=== PATIENT | male | born 1980 | race American Indian/Alaskan Native ===

== ENCOUNTER 2018-08-17 16:38 | Emergency (ER) | payer MEDICAID ==
[2018-08-17 19:17] VITALS: BP 134/88
[2018-08-17] MEDS ORDERED: MOTRIN PO ONE (19:41)
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
== END 2018-08-17 20:36 | disposition home or self-care (01) ==
LOC: ED 16:38
DX: T22.112A Burn of first degree of left forearm, initial encounter (principal); M54.5 Low back pain; R07.89 Other chest pain; V49.49XA Driver injured in collision with other motor vehicles in traffic accident, initial encounter; Y93.89 Activity, other specified; Y92.89 Other specified places as the place of occurrence of the external cause; Y99.8 Other external cause status
CPT/HCPCS: 93005; 93010; 99282

== ENCOUNTER 2019-11-29 15:12 | Emergency (ER) | payer MEDICAID ==
[2019-11-29 15:28] VITALS: BP 167/85
--- NOTE | 2019-11-29 16:09 | Event Note ---
ED Screening Note Date of service: 11/29/19 Time: 16:05 ED Screening Note: 39 having blood in stool times 2 weeks. Chronic back pain is followed by a provider. No rectal pain. No history hemmohoids. This initial assessment/diagnostic orders/clinical plan/treatment(s) is/are subject to change based on patients health status, clinical progression and re- assessment by fellow clinical providers in the ED. Further treatment and workup at subsequent clinical providers discretion. Patient/guardian urged not to elope from the ED as their condition may be serious if not clinically assessed and managed. Initial orders include:
== END 2019-11-29 19:30 | disposition left against medical advice (07) ==
LOC: ED 15:12
DX: K92.1 Melena (principal); Z53.21 Procedure and treatment not carried out due to patient leaving prior to being seen by health care provider

== ENCOUNTER 2020-08-29 11:14 | Emergency (ER) | payer MEDICAID ==
--- NOTE | 2020-08-29 11:18 | Emergency Department Report ---
Blank Doc - Documentation Documentation: 40-year-old male that presents with generalized diffuse weakness. This initial assessment/diagnostic orders/clinical plan/treatment(s) is/are subject to change based on patient's health status, clinical progression and re- assessment by fellow clinical providers in the ED. Further treatment and workup at subsequent clinical providers discretion. Patient/guardians urged not to elope from the ED as their condition may be serious if not clinically assessed and managed. Initial orders include: 1- Patient sent to MAIN ED for further evaluation and treatment 2- labs
[2020-08-29 11:22] VITALS: BP 123/93
[2020-08-29 11:54] LABS: Basophils % (Auto) 0.9 % (0.0-1.8); Eosinophils % (Auto) 1.5 % (0.0-4.3); Hematocrit 38.5 % (35.5-45.6); Hemoglobin 12.9 gm/dl (11.8-15.2); Lymphocytes # (Auto) 1.1 K/mm3 (1.2-5.4); Lymphocytes % (Auto) 38.8 % (13.4-35.0); Mean Corpuscular HGB Conc 34 % (32-34); Mean Corpuscular Volume 81 fl (84-94); Monocytes # (Auto) 0.2 K/mm3 (0.0-0.8); Monocytes % (Auto) 8.7 % (0.0-7.3); Platelet Count 195 K/mm3 (140-440); Red Blood Count 4.75 M/mm3 (3.65-5.03); Red Cell Distribution Width 14.6 % (13.2-15.2)
[2020-08-29 12:17] LABS: Alanine Aminotransferase 76 units/L (7-56); Albumin 4.4 g/dL (3.9-5); BUN/Creatinine Ratio 7; Blood Urea Nitrogen 9 mg/dL (9-20); Calcium 9.5 mg/dL (8.4-10.2); Hemolysis Index 4
--- NOTE | 2020-08-29 12:42 | Emergency Department Report ---
ED General Adult HPI - General Chief complaint: Medical Clearance Stated complaint: MUSCLE WEAK Time Seen by Provider: 08/29/20 11:15 Source: patient Mode of arrival: Ambulatory Limitations: No Limitations - History of Present Illness Initial comments: The patient was evaluated in the emergency department for symptoms described in the history of present illness. He/she was evaluated in the context of the global COVID-19 pandemic, which necessitated consideration that the patient might be at risk for infection with the virus that causes COVID-19. In stitutional protocols and algorithms that pertain to the evaluation of patients at risk for COVID-19 are in a state of rapid change based on information released by regulatory bodies including the CDC and federal and state organizations. These policies and algorithms were followed during the patient's care in the emergency department. Please note that these policies, procedures and recommendations changed on a rapid basis. 40-year-old -[place] male presents to the emergency room reporting that he has muscle weakness times several weeks. Patient states that he was taking testosterone injections but had stopped. He reports that he is having muscle aches mainly in his thighs and upper arm. He was recently seen an eye doctor on the fifth of this month was given a prescription for Cipro. Patient denies any chest pain shortness of breathing nausea vomiting abdominal pain or urinary frequency urgency. Onset/Timin -: week(s) Severity scale (0 -10): 4 Improves with: none Worsens with: other (Stop taking testosterone) Treatments Prior to Arrival: none - Related Data Previous Rx's Medication Instructions Recorded Last Taken Type Pantoprazole [Protonix] 40 mg PO QDAY #30 tablet 08/18/14 Unknown Rx Ibuprofen [Motrin 600 MG tab] 600 mg PO Q8H #30 tablet 08/17/18 Unknown Rx Naproxen [Naprosyn] 500 mg PO BID #14 tablet 10/19/18 Unknown Rx Allergies Allergy/AdvReac Type Severity Reaction Status Date / Time No Known Allergies Allergy Verified 11/07/14 15:17 ED Review of Systems ROS: Stated complaint: MUSCLE WEAK Other details as noted in HPI Comment: All other systems reviewed and negative ED Past Medical Hx - Past Medical History Previous Medical History?: Yes Additional medical history: "pinched nerve and herniated disc" - Surgical History Past Surgical History?: No - Social History Smoking Status: Never Smoker Substance Use Type: None - Medications Home Medications: Home Medications Medication Instructions Recorded Confirmed Last Taken Type Pantoprazole [Protonix] 40 mg PO QDAY #30 tablet 08/18/14 Unknown Rx Ibuprofen [Motrin 600 MG tab] 600 mg PO Q8H #30 tablet 08/17/18 Unknown Rx Naproxen [Naprosyn] 500 mg PO BID #14 tablet 10/19/18 Unknown Rx ED Physical Exam - General Limitations: No Limitations General appearance: alert - Head Head exam: Present: atraumatic, normocephalic - Eye Eye exam: Present: normal appearance - ENT ENT exam: Present: mucous membranes moist - Neck Neck exam: Present: full ROM - Respiratory Respiratory exam: Present: normal lung sounds bilaterally. Absent: respiratory distress - Cardiovascular Cardiovascular Exam: Present: regular rate, normal rhythm. Absent: systolic murmur, diastolic murmur, rubs, gallop - GI/Abdominal GI/Abdominal exam: Present: soft. Absent: distended, tenderness - Extremities Exam Extremities exam: Present: normal inspection - Back Exam Back exam: Present: normal inspection - Neurological Exam Neurological exam: Present: alert, oriented X3, normal gait - Psychiatric Psychiatric exam: Present: normal affect, normal mood - Skin Skin exam: Present: warm, dry, intact, normal color. Absent: rash ED Course Vital Signs 08/29/20 11:18 Temperature 98.6 F Pulse Rate 80 Respiratory 20 Rate Blood Pressure 123/93 O2 Sat by Pulse 98 Oximetry ED Medical Decision Making - Lab Data Result diagrams: 08/29/20 11:44 08/29/20 11:44 Laboratory Tests 08/29/20 08/29/20 11:44 11:44 WBC 2.9 L RBC 4.75 Hgb 12.9 Hct 38.5 MCV 81 L MCH 27 L MCHC 34 RDW 14.6 Plt Count 195 Lymph % (Auto) 38.8 H [place] % (Auto) 8.7 H Eos % (Auto) 1.5 Baso % (Auto) 0.9 Lymph # (Auto) 1.1 L [place] # (Auto) 0.2 Eos # (Auto) 0.0 Baso # (Auto) 0.0 Seg Neutrophils % 50.1 Seg Neutrophils # 1.4 L Sodium 140 Potassium 4.0 Chloride 104.5 Carbon Dioxide 23 Anion Gap 17 BUN 9 Creatinine 1.3 Estimated GFR > 60 BUN/Creatinine Ratio 7 Glucose 94 Calcium 9.5 Total Bilirubin 0.30 AST 37 ALT 76 H Alkaline Phosphatase 55 Total Creatine Kinase 552 H Total Protein 7.2 Albumin 4.4 Albumin/Globulin Ratio 1.6 - Medical Decision Making 40-year-old -[place] male presents to the emergency room reporting that he has muscle weakness times several weeks. Patient states that he was taking testosterone injections but had stopped. He reports that he is having muscle aches mainly in his thighs and upper arm. He was recently seen an eye doctor on the fifth of this month was given a prescription for Cipro. Patient denies any chest pain shortness of breathing nausea vomiting abdominal pain or urinary frequency urgency. Patient CBC is within normal limits. Patient does have a mild elevation of this creatinine kinase with no change of his serum creatinine will encouraged to increase fluid intake avoid strenuous activity avoid NSAIDs and to follow-up with a primary care provider in the next 3 to 5 days. Critical care attestation.: If time is entered above; I have spent that time in minutes in the direct care of this critically ill patient, excluding procedure time. ED Disposition Clinical Impression: Generalized weakness, Elevated creatine kinase Disposition: [id number] TO HOME OR SELFCARE Is pt being admited?: No Does the pt Need Aspirin: No Condition: Stable Instructions: Weakness (ED) Additional Instructions: Recommend to increase your water intake avoid ibuprofen naproxen or any other NSAIDs. Do not drink or smoke. Is very important for you to follow-up with your primary care provider next 3 to 5 days. Referrals: PRIMARY MD PRERI [Primary Care Provider] - 3-5 Days BURAK RUIZ MD [Staff Physician] - 3-5 Days [facility] [Provider Group] - 3-5 Days Forms: Work/School Release Form(ED)
== END 2020-08-29 12:54 | disposition home or self-care (01) ==
LOC: ED 11:14
DX: R53.1 Weakness (principal); R94.4 Abnormal results of kidney function studies
CPT/HCPCS: 36415; 80053; 82550; 85025; 99283